=== PATIENT | male | born 1990 | race Caucasian/White ===

== ENCOUNTER 2020-12-14 00:24 | Emergency (ER) | payer OTHER ==
[2020-12-14 01:59] LABS: BASOPHIL 0.8 % (0-2); EOSINOPHIL 4.8 % (0-5); HCT 49.6 % (42.0-52.0); HGB 16.7 g/dl (13.2-18.0); LYMPHOCYTE 28.7 % (15-48); MCH 28.7 pg (25.0-31.0); MCHC 33.7 g/dL (32.0-36.0); MCV 85.4 fL (78.0-100.0); MPV 11.2 fL (6.0-9.5); NEUTROPHIL 54.5 % (41-80); NRBC 0; PLT 237 K/uL (150-400); RBC 5.81 M/uL (4.70-6.00); RDW 12.6 % (11.5-14.0); WBC 9.1 K/uL (4.0-10.5)
[2020-12-14 02:36] LABS: ALBUMIN 4.1 g/dL (3.4-5.0); BILIRUBIN - TOTAL 0.6 mg/dL (0.2-1.0); BUN/CREAT RATIO (CALC) 13.7 RATIO; CREATININE 0.95 mg/dL (0.67-1.17); GLOBULIN (CALCULATION) 3.2 g/dL; POTASSIUM 3.9 mmol/L (3.5-5.1); TOTAL PROTEIN 7.3 g/dL (6.4-8.2)
[2020-12-14] MEDS ORDERED: IBUPROFEN800 MG PO (05:20)
[2020-12-14] MEDS ORDERED: PROTONIX 40MG T40 MG PO (05:20)
[2020-12-14] MEDS ORDERED: NORCO 5-325 TA1 EACH PO (05:20)
== END 2020-12-14 05:35 | disposition home or self-care (01) ==
LOC: FER 00:24
PROVIDERS: Emergency Medicine Emergency Medical Services
DX: K80.50 Calculus of bile duct without cholangitis or cholecystitis without obstruction (principal); F20.9 Schizophrenia, unspecified; F17.290 Nicotine dependence, other tobacco product, uncomplicated; Z88.2 Allergy status to sulfonamides; Z88.1 Allergy status to other antibiotic agents
CPT/HCPCS: 36415; 80053; 83605; 83690; 84145; 85025; J1885; J2405; J7120; Q9967

== ENCOUNTER 2021-10-03 20:03 | Emergency (ER) | payer OTHER ==
[~2021-10-03 20:03] MED LIST: IBUPROFEN800 MG PO; NORCO 5-325 TA1 EACH PO; PROTONIX 40MG T40 MG PO
[2021-10-03] MEDS ORDERED: VOLTAREN ARTHRI20 GM TOP (22:23)
== END 2021-10-03 22:45 | disposition home or self-care (01) ==
LOC: FER 20:03
DX: S86.811A Strain of other muscle(s) and tendon(s) at lower leg level, right leg, initial encounter (principal); F17.290 Nicotine dependence, other tobacco product, uncomplicated; Z28.310 Unvaccinated for COVID-19; Z88.2 Allergy status to sulfonamides
CPT/HCPCS: 73564; J1885